=== PATIENT | male | born 1995 | race Caucasian/White ===

== ENCOUNTER 2020-11-26 14:16 | Emergency (ER) | payer OTHER, SELFPAY ==
[2020-11-26 15:32] VITALS: BP 137/81; PULSE 76; RESP 17; TEMP 36.6; O2SAT 98; BMI 26.6
[2020-11-26] MEDS: Fluorescein Sodium STRIP 1 STRIP EYE-BOTH (15:44)
[2020-11-26] MEDS: Tetracaine HCl/PF 0.5% Oph Sol 4 ML DROPS 2 DROP EYE-BOTH (15:44)
--- NOTE | 2020-11-26 16:04 | ED.EYEPROB ---
HPI - Eye Problem General Chief complaint: Eye Problems Stated complaint: FB in eye - work related Time Seen by Provider: 11/26/20 15:29 Source: patient Mode of arrival: ambulatory Limitations: no limitations History of Present Illness HPI Narrative: 25-year-old male presenting to the ED with complaints of possible metal in the left eye. He reports he was grinding metal at work today and feels like a piece of metal went into his eye. He reports he irrigated the eye immediately at the eye station at work. Denies any other injury complaints or concerns at this time. Patient reports he is not up-to-date on tetanus. Denies any other symptoms complaints or concerns at this time. Related Data Previous Rx's Medication Instructions Recorded acetaminophen [Tylenol Extra 1,000 mg PO QID PRN #14 tab 11/26/20 Strength] erythromycin 0.5 inch OPHTHALMIC (EYE) QID 7 11/26/20 Days #3.5 g ibuprofen 800 mg PO Q8H PRN #14 tab 11/26/20 oxycodone 5 mg PO BID PRN #10 tab 11/26/20 Allergies Allergy/AdvReac Type Severity Reaction Status Date / Time No Known Allergies Allergy Verified 11/26/20 15:29 Review of Systems Review of Systems: Constitutional : No fevers, no chills, No changes in activity, No lethargy, No recent prior head injury, No agitation, No increased fussiness ENT/Mouth : No Ear Pain, No Nasal discharge/drainage Eyes: Positive eye pain/foreign body sensation/watery discharge, No Vision changes/blurry/decreased vision, No Swelling, No Redness, No Photophobia, no itching, no eyelid edema, no contact lens uses, no bleeding Cardiovascular : No Chest Pain, No SOB Respiratory : No Cough Gastrointestinal : No Nausea, No Vomiting, No abdominal Pain Genitourinary : No Dysuria, No Urinary Frequency, No Urinary Incontinence, No Urgency, No Flank Pain Musculoskeletal : No joint pain, No neck stiffness, No back pain/injury Skin : No lacerations Neuro : No unsteady gait, No Paresthesias, No Loss of Consciousness, No altered mental status, No dizziness, No Headache Denies past medical history of HIV, recent trauma, coagulopathy, recent spinal/ epidural procedure, new medication, URI symptoms, close contacts with similar symptoms, tick bite, or known CO2 exposure. Yes all other systems are reviewed and are negative [facility] Past Medical History Attestation statement: The following information was validated with the patient. Medical History No known health problems Social History Social History Advance Directives: No Advance Directives Information Provided: Yes Physical Exam Vital Signs: Vital Signs: Last Vital Signs Temp 97.8 F 11/26/20 15:32 Pulse 76 11/26/20 15:32 Resp 17 11/26/20 15:32 BP 137/81 11/26/20 15:32 Pulse Ox 98 11/26/20 15:32 Body Mass Index 26.6 vital signs have been reviewed as normal and appeared to be correct. Blood pressure normal. Heart rate normal. Respiration rate normal. Temperature normal. Oxygen saturation normal. Appearance: Alert. Oriented X3. No acute distress. Head: Normal external exam. Normocephalic. Atraumatic. No Melgar signs noted. No raccoon eyes noted Eyes: PERRLA. EOMI. Conjunctiva are normal. Cornea are normal. Funduscopic exam within normal limits. Sclera normal. Eyelids normal. No papilledema noted. Anterior chamber normal. No photophobia noted. See nurse's notes for visual acuity. Although on my exam no foreign bodies are noted. No uptake of fluorescein. ENT: EAC normal. TM's Normal. Pharynx normal. Uvula midline. Moist mucous membranes. Neck: Normal inspection. Neck supple. FROM. No adenopathy. Thyroid Normal. No meningeal signs. No neck mass noted. CVS: Normal heart rate and rhythm. Heart sound normal. No murmurs noted. Pulses normal throughout. Respiratory: No respiratory distress. Painless inspiration. Breath sounds normal. Back: Full range of motion noted. Skin: Skin warm and dry. Normal skin color. Normal skin turgor. No rashes/lesions/lacerations noted. Extremities: No lower extremity edema. Extremities exhibit normal range of motion. Extremities nontender. Neuro: Oriented X 3. No motor deficit. No sensory deficit. Reflexes normal. Course Course Course Narrative: 25-year-old male presenting to the ED with work related injury after he was grinding metal at work and believes that he possibly has metal to the left eye. He irrigated the eye at the eye station immediately. Not up-to-date on tetanus I offered tetanus although patient is refusing adamantly reports he has a huge phobia of needles and does not want a tetanus vaccine. I explained to him very important although patient still refusing. Otherwise no foreign bodies or fluorescein uptake on my exam. Will DC home with antibiotics and symptomatic treatment referral to Ophthalmology. Along with instructions follow-up were connection. Patient understands agrees with this plan. MDM - Eye Problem Medical Records Attestation: I reviewed the patient's medical records. Discharge Plan Discharge Clinical Impression: Corneal abrasion Patient Disposition: Home, Self-Care Instructions: Corneal Abrasion (ED) Prescriptions: New erythromycin 5 mg/gram (0.5 %) ointment 0.5 inch ophthalmic (eye) QID 7 Days Qty: 3.5 RF: 0 ibuprofen 800 mg tablet 800 mg PO Q8H PRN (Reason: pain) Qty: 14 RF: 0 acetaminophen [Tylenol Extra Strength] 500 mg tablet 1,000 mg PO QID PRN (Reason: fever or pain) Qty: 14 RF: 0 oxycodone 5 mg tablet 5 mg PO BID PRN (Reason: pain) Qty: 10 RF: 0 Referrals: [facility] [Provider Group] - 2 days [facility] [Physician] - 11/26/20 Stand Alone Forms: Work/School Release Print Language: [place]
[2020-11-26] MEDS: Erythromycin Base 0.5% Oph Oin 1 GM TUBE 1 CM EYE-LEFT (16:13)
== END 2020-11-26 16:20 | disposition home or self-care (01) ==
PROVIDERS: Emergency Provider Emergency Medicine
DX: S05.02XA Injury of conjunctiva and corneal abrasion without foreign body, left eye, initial encounter (principal); X58.XXXA Exposure to other specified factors, initial encounter; Y93.89 Activity, other specified; Y92.89 Other specified places as the place of occurrence of the external cause; Y99.0 Civilian activity done for income or pay
CPT/HCPCS: 99283